=== PATIENT | female | born 1940 | race Caucasian/White ===

== ENCOUNTER 2018-04-22 11:10 | Inpatient (IN) | payer OTHER ==
[2018-04-22 12:29] LABS: ADD MAN DIFF? NO
[2018-04-22 12:37] LABS: WHITE BLOOD COUNT 7.7 10^3/ul (4.8-10.8)
[2018-04-22 12:37] LABS: BASOPHIL # 0.1 10^3/ul (0.0-0.1); BASOPHILS % 0.8 % (0.0-2.0); EOSINOPHILS # 0.2 10^3/ul (0.0-0.5); EOSINOPHILS % 3.1 % (0.0-7.0); HEMATOCRIT 36.5 % (37.0-47.0); HEMOGLOBIN 11.6 g/dl (12.0-16.0); LYMPHOCYTES % 12.6 % (15.0-51.0); MEAN CORPUSCULAR HEMOGLOBIN 28.2 pg (29.0-33.0); MEAN CORPUSCULAR HGB CONC 31.8 g/dl (32.0-37.0); MEAN CORPUSCULAR VOLUME 88.8 fl (82.0-101.0); MEAN PLATELET VOLUME 9.4 fl (7.4-10.4); MONOCYTE # 0.7 10^3/ul (0.3-0.9); MONOCYTES % 9.6 % (0.0-11.0); NEUTROPHIL # 5.7 10^3/ul (1.6-7.5); NEUTROPHILS % 73.6 % (39.0-77.0); PLATELET COUNT 196 10^3/UL (140-415); RED BLOOD COUNT 4.11 10^6/ul (4.20-5.40); RED CELL DISTRIBUTION WIDTH 14.6 % (11.5-14.5)
[2018-04-22] MEDS: DILTIAZEM 25 MG INJ IV (12:42)
[2018-04-22] MEDS: ASPIRIN 81 MG TAB PO (12:44)
[2018-04-22] MEDS: MAGNESIUM SULFATE 2 GM/50 ML 50 ML IVPB (12:46)
[2018-04-22 12:53] LABS: INR 1.03; PARTIAL THROMBOPLASTIN TIME 27.9 Sec (23.0-35.0); PROTIME 13.6 Sec (11.9-14.9); PT RATIO 1.1
[2018-04-22 12:59] LABS: ANION GAP 8 (5-13); BLOOD UREA NITROGEN 15 mg/dl (7-20); CALCIUM 9.7 mg/dl (8.4-10.2); CARBON DIOXIDE 27 mmol/L (21-31); CHLORIDE 105 mmol/L (97-110); CREATININE 0.83 mg/dl (0.44-1.00); GLUCOSE 101 mg/dl (70-220); POTASSIUM 4.3 mmol/L (3.5-5.1); SODIUM 140 mmol/L (135-144)
[2018-04-22 13:11] LABS: B-TYPE NATRIURETIC PEPTIDE 2630 PG/ML (0-450); TROPONIN-I < 0.012 ng/ml (0.000-0.120)
[2018-04-22] MEDS: DILTIAZEM-D5W 125MG/125ML DRIP 125 ML IV (13:28)
[2018-04-22] MEDS ORDERED: ONDANSETRON 4 MG INJ IV ×2 (13:30→14:30)
[2018-04-22] MEDS ORDERED: ACETAMINOPHEN 325 MG TAB PO ×2 (13:30→14:30)
[2018-04-22] MEDS ORDERED: NITROGLYCERIN (SL) 0.4 MG TAB SL (14:30)
[2018-04-22 14:34] LABS: D-DIMER 944.71 ng/ml (<460)
[2018-04-22] MEDS: SOD CHLORIDE 0.9% 100 ML (15:47)
[2018-04-22] MEDS: IOHEXOL 100 ML (15:47)
[2018-04-22] MEDS ORDERED: VERAPAMIL 80 MG TAB PO ×2 (18:08→21:00)
[2018-04-22] MEDS: VERAPAMIL 40 MG TAB PO (18:32)
[2018-04-22 18:56] LABS: CREATINE KINASE 74 IU/L (23-200)
[2018-04-22] MEDS ORDERED: DILTIAZEM 25 MG INJ IV (19:00)
[2018-04-22 19:08] LABS: CK INDEX 1.9; CK-MB 1.37 ng/ml (0.0-2.4); TROPONIN-I < 0.012 ng/ml (0.000-0.120)
[2018-04-22] MEDS: DIGOXIN 500 MCG INJ IV ×2 (19:25→23:00)
[2018-04-22] MEDS: DOCUSATE SODIUM 100 MG CAP PO ×2 (19:25→21:00)
[2018-04-22] MEDS: ENOXAPARIN 30 MG/0.3 ML SYG SC (21:00)
[2018-04-22] MEDS ORDERED: ENOXAPARIN 100 MG/ML SYG SC (21:00)
[2018-04-22] MEDS: ENOXAPARIN 80 MG/0.8 ML SYG SC (22:34)
[2018-04-23 01:02] LABS: CREATINE KINASE 80 IU/L (23-200)
[2018-04-23 01:15] LABS: CK INDEX 1.7; CK-MB 1.33 ng/ml (0.0-2.4); TROPONIN-I 0.012 ng/ml (0.000-0.120)
[2018-04-23] MEDS: DIGOXIN 500 MCG INJ IV ×2 (03:00→07:38)
[2018-04-23] MEDS: LORAZEPAM 0.5 MG TAB PO (04:46)
[2018-04-23 05:27] LABS: ADD MAN DIFF? NO
[2018-04-23 05:34] LABS: WHITE BLOOD COUNT 7.7 10^3/ul (4.8-10.8)
[2018-04-23 05:34] LABS: BASOPHIL # 0.1 10^3/ul (0.0-0.1); EOSINOPHILS # 0.4 10^3/ul (0.0-0.5); EOSINOPHILS % 4.5 % (0.0-7.0); HEMATOCRIT 37.3 % (37.0-47.0); HEMOGLOBIN 12.1 g/dl (12.0-16.0); LYMPHOCYTES # 1.7 10^3/ul (0.8-2.9); LYMPHOCYTES % 22.5 % (15.0-51.0); MEAN CORPUSCULAR HEMOGLOBIN 28.6 pg (29.0-33.0); MEAN CORPUSCULAR HGB CONC 32.4 g/dl (32.0-37.0); MEAN CORPUSCULAR VOLUME 88.2 fl (82.0-101.0); MEAN PLATELET VOLUME 9.7 fl (7.4-10.4); MONOCYTE # 0.8 10^3/ul (0.3-0.9); MONOCYTES % 9.8 % (0.0-11.0); NEUTROPHIL # 4.8 10^3/ul (1.6-7.5); NEUTROPHILS % 61.8 % (39.0-77.0); PLATELET COUNT 227 10^3/UL (140-415); RED BLOOD COUNT 4.23 10^6/ul (4.20-5.40); RED CELL DISTRIBUTION WIDTH 14.6 % (11.5-14.5)
[2018-04-23 05:49] LABS: CREATINE KINASE 80 IU/L (23-200)
[2018-04-23 05:55] LABS: ALANINE AMINOTRANSFERASE 25 IU/L (13-69); ALBUMIN 3.9 g/dl (3.3-4.9); ALBUMIN/GLOBULIN RATIO 1.14; ALKALINE PHOSPHATASE 68 IU/L (42-121); ANION GAP 3 (5-13); ASPARTATE AMINO TRANSFERASE 27 IU/L (15-46); BILIRUBIN,INDIRECT 0.3 mg/dl (0-1.1); BILIRUBIN,TOTAL 0.3 mg/dl (0.2-1.3); BLOOD UREA NITROGEN 15 mg/dl (7-20); CALCIUM 9.5 mg/dl (8.4-10.2); CARBON DIOXIDE 31 mmol/L (21-31); CHLORIDE 107 mmol/L (97-110); CHOL/HDL RATIO 2.4 RATIO; CHOLESTEROL 160 mg/dl (100-200); CREATININE 0.96 mg/dl (0.44-1.00); GLUCOSE 102 mg/dl (70-220); HDL CHOLESTEROL 66 mg/dl (33-92); LDL CHOLESTEROL,CALCULATED 81 mg/dl; MAGNESIUM 2.1 mg/dl (1.7-2.5); POTASSIUM 4.5 mmol/L (3.5-5.1); SODIUM 141 mmol/L (135-144); TOTAL PROTEIN 7.3 g/dl (6.1-8.1); TRIGLYCERIDES 65 mg/dl (0-149)
[2018-04-23 05:59] LABS: B-TYPE NATRIURETIC PEPTIDE 3030 PG/ML (0-450)
[2018-04-23 06:01] LABS: CK INDEX 1.8; TROPONIN-I < 0.012 ng/ml (0.000-0.120)
[2018-04-23 06:08] LABS: FREE T4 (FREE THYROXINE) 1.29 ng/dl (0.78-2.44)
[2018-04-23 06:41] LABS: HEMOGLOBIN A1C 5.9 % (0-5.9)
[2018-04-23] MEDS: DOCUSATE SODIUM 100 MG CAP PO ×2 (08:19→20:20)
[2018-04-23] MEDS: LOSARTAN 50 MG TAB PO (08:20)
[2018-04-23] MEDS: VERAPAMIL 40 MG TAB PO ×2 (08:20→12:31)
[2018-04-23] MEDS: ENOXAPARIN 30 MG/0.3 ML SYG SC (08:21)
[2018-04-23] MEDS: ENOXAPARIN 80 MG/0.8 ML SYG SC (08:22)
[2018-04-23 10:38] LABS: ADD UMIC NO; UR ASCORBIC ACID NEGATIVE (NEGATIVE); UR BILIRUBIN (Dip) NEGATIVE (NEGATIVE); UR BLOOD (Dip) NEGATIVE (NEGATIVE); UR CLARITY CLEAR (CLEAR); UR COLOR YELLOW (YELLOW); UR GLUCOSE (Dip) NEGATIVE (NEGATIVE); UR KETONES (Dip) TRACE mg/dL (NEGATIVE); UR LEUKOCYTE ESTERASE (Dip) NEGATIVE Leu/ul (NEGATIVE); UR NITRITE (Dip) NEGATIVE (NEGATIVE); UR SPECIFIC GRAVITY (Dip) 1.016 (1.003-1.030); UR TOTAL PROTEIN (Dip) NEGATIVE (NEGATIVE); UR UROBILINOGEN (Dip) 1+ mg/dL (NEGATIVE)
[2018-04-23] MEDS: HYDROCODONE/APAP (5/325) TAB PO ×2 (10:43→20:27)
[2018-04-23 10:57] LABS: AMPHETAMINE/METHAMPHETAMINE NEGATIVE (NEGATIVE); BARBITURATES NEGATIVE (NEGATIVE); BENZODIAZEPINES NEGATIVE (NEGATIVE); CANNABINOIDS NEGATIVE (NEGATIVE); COCAINE NEGATIVE (NEGATIVE); OPIATES NEGATIVE (NEGATIVE)
[2018-04-23] MEDS: METOPROLOL 25 MG TAB PO (12:32)
[2018-04-23] MEDS: RIVAROXABAN 20 MG TABLET PO (17:25)
[2018-04-23] MEDS: METOPROLOL (XL) 50 MG TAB PO (20:20)
[2018-04-23] MEDS: ATORVASTATIN 10 MG TAB PO (20:20)
[2018-04-23] MEDS: ZOLPIDEM 5 MG TAB PO (20:21)
[2018-04-24 07:13] LABS: ADD MAN DIFF? NO
[2018-04-24 07:17] LABS: BASOPHIL # 0.1 10^3/ul (0.0-0.1); BASOPHILS % 1.1 % (0.0-2.0); EOSINOPHILS # 0.5 10^3/ul (0.0-0.5); EOSINOPHILS % 8.2 % (0.0-7.0); HEMATOCRIT 38.4 % (37.0-47.0); HEMOGLOBIN 12.2 g/dl (12.0-16.0); LYMPHOCYTES # 1.6 10^3/ul (0.8-2.9); LYMPHOCYTES % 25.5 % (15.0-51.0); MEAN CORPUSCULAR HGB CONC 31.8 g/dl (32.0-37.0); MEAN CORPUSCULAR VOLUME 88.1 fl (82.0-101.0); MEAN PLATELET VOLUME 9.4 fl (7.4-10.4); MONOCYTE # 0.6 10^3/ul (0.3-0.9); NEUTROPHIL # 3.5 10^3/ul (1.6-7.5); NEUTROPHILS % 54.9 % (39.0-77.0); PLATELET COUNT 239 10^3/UL (140-415); RED BLOOD COUNT 4.36 10^6/ul (4.20-5.40); RED CELL DISTRIBUTION WIDTH 14.3 % (11.5-14.5)
[2018-04-24 07:17] LABS: WHITE BLOOD COUNT 6.3 10^3/ul (4.8-10.8)
[2018-04-24 07:52] LABS: ANION GAP 11 (5-13); BLOOD UREA NITROGEN 15 mg/dl (7-20); CALCIUM 9.3 mg/dl (8.4-10.2); CARBON DIOXIDE 28 mmol/L (21-31); CHLORIDE 102 mmol/L (97-110); CREATININE 0.88 mg/dl (0.44-1.00); GLUCOSE 114 mg/dl (70-220); POTASSIUM 4.1 mmol/L (3.5-5.1); SODIUM 141 mmol/L (135-144)
[2018-04-24] MEDS: DOCUSATE SODIUM 100 MG CAP PO (08:25)
[2018-04-24] MEDS: LOSARTAN 50 MG TAB PO (08:26)
[2018-04-24] MEDS: METOPROLOL (XL) 50 MG TAB PO (08:26)
[2018-04-24] MEDS: FUROSEMIDE 20 MG INJ IV (09:15)
[2018-04-24] MEDS ORDERED: DIGOXIN 0.125 MG TAB PO (13:00)
== END 2018-04-24 12:13 | disposition home or self-care (01) | DRG 308 ==
LOC: MS3 13:20 → E/R 11:10 → TEL 04-23 19:34
DX: I48.91 Unspecified atrial fibrillation (principal); I50.31 Acute diastolic (congestive) heart failure; I11.0 Hypertensive heart disease with heart failure; I27.20 Pulmonary hypertension, unspecified; E66.01 Morbid (severe) obesity due to excess calories; R91.1 Solitary pulmonary nodule; I71.9 Aortic aneurysm of unspecified site, without rupture; Z68.38 Body mass index [BMI] 38.0-38.9, adult; J32.9 Chronic sinusitis, unspecified; E78.5 Hyperlipidemia, unspecified; G47.33 Obstructive sleep apnea (adult) (pediatric); Z96.651 Presence of right artificial knee joint
CPT/HCPCS: 71045; 71275; 80048; 80053; 80061; 80307; 81003; 82550; 82553; 83036; 83735; 83880; 84100; 84439; 84443; 84484; 85025; 85378; 85610; 85730; 87040; 87400; 93005; 93306; 93970; 96365; 96375; 99291-25